=== PATIENT | male | born 1965 | race Caucasian/White ===

== ENCOUNTER → 2019-08-18 | Outpatient (CLI) | payer SELFPAY ==
--- NOTE | 2019-08-18 16:20 | PCVCIMAG ---
APPROVED REPORT Study performed: 08/18/2019 15:35:34 EXAM: Comprehensive 2D, Doppler, and color-flow Echocardiogram Patient Location: Echo lab Status: routine BSA: 2.58 HR: 80 bpmBP: 128/80 mmHg Rhythm: Atrial Fibrillation Other Information Study Quality: Adequate Indications Atrial Fibrillation Dyspnea 2D Dimensions IVSd: 11.56 (7-11mm) LVDd: 47.10 mm PWd: 10.62 (7-11mm)Ascending Ao: 32.94 (22-36mm) LVDs: 40.36 (25-40mm) Left Atrium: 50.76 (27-40mm) Aortic Root: 33.04 mm LV Single Plane 4CH: 45.89 % LV Single Plane 2CH: 59.48 % Biplane EF: 54.9 % Volumes Left Atrial Volume (Systole) Single Plane 4CH: 116.66 mLSingle Plane 2CH: 131.14 mL LA ESV Index: 50.00 mL/m2 Aortic Valve AoV Peak Temo.: 1.28 m/s AO Peak Gr.: 6.57 mmHgLVOT Max P.72 mmHg LVOT Max V: 0.82 m/s Pulmonary Valve PV Peak Temo.: 0.73 m/sPV Peak Gr.: 2.12 mmHg Tricuspid Valve TR Peak Temo.: 2.44 m/s TR Peak Gr.: 23.90 mmHg Left Ventricle The left ventricle is normal size. There is normal LV segmental wall motion. Borderline concentric left ventricular hypertrophy. Left ventricular systolic function is normal. The left ventricular ejection fraction is within the normal range. LVEF is 50-55%. This study is not technically sufficient to allow evaluation of the LV diastolic function due to atrial fibrillation. Right Ventricle The right ventricle is normal size. The right ventricular systolic function is normal. Atria Left atrium is severely dilated. Right atrium is moderately dilated. Aortic Valve The aortic valve is normal in structure. No aortic regurgitation is present. There is no aortic valvular stenosis. Mitral Valve The mitral valve is normal in structure. Mild to moderate mitral regurgitation. No evidence of mitral valve stenosis. Tricuspid Valve The tricuspid valve is normal in structure. Mild tricuspid regurgitation with PAP of 31 mmHg. Pulmonic Valve The pulmonary valve is normal in structure. There is no pulmonic valvular regurgitation. Great Vessels The aortic root is normal in size. IVC is normal in size and collapses >50% with inspiration. Pericardium There is no pericardial effusion. There is no pleural effusion. <Conclusion> The left ventricle is normal size. Borderline concentric left ventricular hypertrophy. LVEF is 50-55%. This study is not technically sufficient to allow evaluation of the LV diastolic function due to atrial fibrillation. The right ventricle is normal size. Left atrium is severely dilated. Right atrium is moderately dilated. The aortic valve is normal in structure. Mild to moderate mitral regurgitation. Mild tricuspid regurgitation with PAP of 31 mmHg. The aortic root is normal in size. There is no pericardial effusion.
== END | disposition home or self-care (01) ==
LOC: PCVCIMAG 15:42
PROVIDERS: ATTEND Internal Medicine
DX: I08.1 Rheumatic disorders of both mitral and tricuspid valves (principal); I48.91 Unspecified atrial fibrillation
CPT/HCPCS: 93306